=== PATIENT | female | born 1985 ===

== ENCOUNTER 2017-08-15 10:12 | Emergency (ER) | payer OTHER ==
[2017-08-15 10:12] VITALS: BMI 28.3
[2017-08-15] MEDS ORDERED: Albuterol-Ipratrop 3 mg / 0.5 (3 ml) UD ONE ×2 (10:25→12:08)
[2017-08-15] MEDS ORDERED: Sodium Chloride 0.9% 1,000 ML IV ONE (10:49)
--- NOTE | 2017-08-15 10:51 | C.PDOC ---
History Of Present Illness 31 yr old female brought in via EMS, presents to the ER for evaluation of left sided chest wall pain gradually developed for past 2 days. Pt reports, today woke up with left arm numbness and tingling sensation. Patient admits the chest wall pain is reproducible and worse with left arm movement. Pt also reports, " was coughing for few months, seems chronic cough". Otherwise, pt denies recent fever, chills, headache, dizziness, visual changes, focal deficits, neck pain, chest pain, palpitations, SOB, dyspnea, wheezing, nausea, vomiting, abdominal pain, back pain, denies known trauma or injury to Left arm. Ambulatory in ED with stable gait, not in any apparent distress. Time Seen by Provider: 08/15/17 10:18 Chief Complaint (Nursing): Cough, Cold, Congestion History Per: Patient History/Exam Limitations: no limitations Onset/Duration Of Symptoms: Sudden Onset (since morning) Past Medical History Reviewed: Historical Data, Nursing Documentation, Vital Signs Vital Signs: Last Vital Signs Temp 98.2 F 08/15/17 12:58 Pulse 76 08/15/17 12:58 Resp 18 08/15/17 12:58 BP 142/82 08/15/17 12:58 Pulse Ox 98 08/15/17 12:58 - Medical History PMH: Asthma Family History: States: No Known Family Hx - Social History Hx Tobacco Use: Yes Hx Alcohol Use: No Hx Substance Use: No - Immunization History Hx Tetanus Toxoid Vaccination: No Hx Influenza Vaccination: No Hx Pneumococcal Vaccination: No Review Of Systems Except As Marked, All Systems Reviewed And Found Negative. Constitutional: Negative for: Fever, Chills Cardiovascular: Positive for: Other ((+) left sided chest wall pain). Negative for: Chest Pain, Palpitations Respiratory: Negative for: Shortness of Breath, Wheezing Gastrointestinal: Negative for: Nausea, Vomiting, Abdominal Pain Musculoskeletal: Positive for: Other ((+) left armnumbness and tingling sensation). Negative for: Neck Pain, Back Pain Physical Exam - Physical Exam Appears: Well, Non-toxic, No Acute Distress Skin: Warm, Dry, No Rash Head: Normacephalic Eye(s): bilateral: PERRL Ear(s): Bilateral: Normal Nose: No Flaring, No Discharge Oral Mucosa: Moist, No Drooling Lips: Normal Appearing Throat: No Erythema, No Exudate, No Drooling Neck: Trachea Midline, Supple Chest: Symmetrical, Tenderness (tenderness over the anterior aspect left chest wall overlying 2-4 intercostal spaces with moderate muscle spasm. No palpable deformity, no skin changes.), No Ecchymosis, No Subcutaneous Emphysema Cardiovascular: Rhythm Regular, No Murmur, No JVD, Other ((-) carotid bruits) Respiratory: No Decreased Breath Sounds, No Accessory Muscle Use, No Rales, No Rhonchi, No Stridor, Wheezing (scattered Right base) Gastrointestinal/Abdominal: Soft, No Tenderness, No Distention, No Guarding Back: No CVA Tenderness Extremity: Normal ROM, No Tenderness, Capillary Refill (less than 2sec to B/L UEs), No Deformity, No Swelling Neurological/Psych: Oriented x3, Normal Speech, Normal Cognition, Normal Motor, Normal Sensation, Normal Reflexes ED Course And Treatment - Laboratory Results Result Diagrams: 08/15/17 11:54 08/15/17 11:54 Lab Interpretation: No Acute Changes ECG: Interpreted By Me, Viewed By Me (and ED attending) ECG Rhythm: Sinus Rhythm Interpretation Of ECG: SR@65/min, NAD, no acute t wave or ST-T changes Rate From EC (BPM) O2 Sat by Pulse Oximetry: 97 (RA) Pulse Ox Interpretation: Normal - Radiology CXR: Interpreted by Me, Viewed By Me CXR Interpretation: Yes: No Acute Disease Progress Note: Pt was OBS in ED for 2 hours and reports moderate improvement in sx. On re-eval, pt is Afebrile, hemdoynamicalys table. Non-toxic. Ambulatory in Ed with stable gait. PuslEOx 97% RA. ENT: no acute findings. neck: SUpple , (-) JVD, (-) carotid bruits B/L. Lungs: CTA B/L, BS equal B/L. CVS: (+)S1S2 , reg, (-) murmur. Abd: benign, (-) guarding, (-) rebound. Back: (-) CVA tenderness. Neuorlogicaly intact. Blood work review and appears without acute abnormalities. Troponin- negative. CXR, EKG- normal study. Pt has clinical findings c/w left arm paresthesia, left sided chest wall pain, bronchitis r/o COPD. Pt advised. ref. to f/u with PMD, Neurologist in 2-3 days for re-eavl. return to ED if any worsening or new changes. Medical Decision Making Medical Decision Making: PLAN: * CXR * EKG * Troponin * CBC * BMP * Influenza * HCG * Urinalysis * Solumedrol IVP * Toradol IVP * Valium IVP * Sodium Chloride IV Disposition Counseled Patient/Family Regarding: Studies Performed, Diagnosis, Need For Followup, Rx Given - Disposition Referrals: [facility] [Outside] Jose Lott MD [Staff Provider] - Disposition: HOME/ ROUTINE Disposition Time: 12:44 Condition: STABLE Additional Instructions: LIght duty to left arm Take medication as prescribed Follow up with PMD in 2-3 days for re-evaluation. Return to ED if any worsening or new changes. Prescriptions: Albuterol HFA [Ventolin HFA 90 mcg/actuation (8 g)] 1 puff IH Q6 #1 inhaler Methocarbamol [Robaxin] 500 mg PO TID #14 tab Prednisone [Deltasone] 20 mg PO DAILY #3 tablet Instructions: Acute Bronchitis (ED), Paresthesia (ED), Chest Wall Pain (ED) Forms: [employer] (Belarusian) - Clinical Impression Clinical Impression: Bronchitis, Chest wall pain, Bronchitis - PA / CARDIAC MONITOR / Resident Statement MD/DO has reviewed & agrees with the documentation as recorded. - Scribe Statement The provider has reviewed the documentation as recorded by the Scribe Roseann Brandon All medical record entries made by the Scribe were at my direction and personally dictated by me. I have reviewed the chart and agree that the record accurately reflects my personal performance of the history, physical exam, medical decision making, and the department course for this patient. I have also personally directed, reviewed, and agree with the discharge instructions and disposition.
[2017-08-15] MEDS ORDERED: diaZEpam 10 mg/2 ml Inj IVP STA (11:04)
[2017-08-15] MEDS ORDERED: MethylPREDNISolone 40 mg Vial IVP STA (11:22)
[2017-08-15] MEDS ORDERED: Sodium Chloride 0.9% 1,000 ML ONE (11:38)
[2017-08-15] MEDS ORDERED: Albuterol-Ipratrop 3 mg / 0.5 (3 ml) UD IH STA (11:47)
[2017-08-15 12:01] LABS: BASO # 0.1 K/uL (0.0-0.2); BASO % 0.7 % (0.0-2.0); EOS # 0.2 K/uL (0.0-0.7); EOS % 2.3 % (0.0-4.0); HEMOGLOBIN 16.3 g/dL (11.0-16.0); MEAN CELL VOLUME 94.9 fL (81.0-99.0); MEAN CORPUSCULAR HEMOGLOBIN 33.6 pg (27.0-31.0); MEAN CORPUSCULAR HGB CONC 35.4 g/dL (33.0-37.0); MEAN PLATELET VOLUME 9.6 fL (7.2-11.7); MONO # 0.6 K/uL (0.0-0.8); MONO % 7.1 % (0.0-10.0); NEUT % 67.9 % (50.0-75.0); NRBC % 0.1 % (0.0-2.0); RBC 4.87 Mil/uL (3.80-5.20); RED CELL DISTRIBUTION WIDTH 13.2 % (11.5-14.5); WHITE BLOOD COUNT 8.9 K/uL (4.8-10.8)
[2017-08-15] MEDS ORDERED: diaZEpam 10 mg/2 ml Inj ONE (12:02)
[2017-08-15 12:03] LABS: HCG,QUALITATIVE URINE NEGATIVE (NEGATIVE)
[2017-08-15 12:04] LABS: SQUAMOUS EPITHIAL 12 /hpf (0-5); URINE BACTERIA RARE (<OCC); URINE BILIRUBIN NEGATIVE (NEGATIVE); URINE BLOOD NEGATIVE (NEGATIVE); URINE CLARITY Hazy (Clear); URINE COLOR Yellow (YELLOW); URINE GLUCOSE (UA) NORMAL (Normal); URINE LEUKOCYTE ESTERASE NEG Leu/uL (Negative); URINE NITRATE NEGATIVE (NEGATIVE); URINE PROTEIN NEGATIVE (NEGATIVE); URINE UROBILINOGEN NORMAL mg/dL (0.2-1.0)
[2017-08-15 12:14] LABS: BLOOD UREA NITROGEN 11 mg/dL (7-17); CALCIUM 9.5 mg/dl (8.6-10.4); GFR AFRICAN-AMERICAN > 60; GFR NON-AFRICAN AMERICAN > 60
[2017-08-15 12:59] VITALS: BP 142/82; PULSE 76; RESP 18; TEMP 98.2
--- NOTE | 2017-08-15 16:14 | RAD ---
HISTORY: SOB COMPARISON: No prior. TECHNIQUE: Chest PA and lateral FINDINGS: LUNGS: No active pulmonary disease. PLEURA: No significant pleural effusion identified. No pneumothorax apparent. CARDIOVASCULAR: Normal. OSSEOUS STRUCTURES: No significant abnormalities. VISUALIZED UPPER ABDOMEN: Normal. OTHER FINDINGS: None. IMPRESSION: No active disease.
[2017-08-15 17:57] VITALS: O2SAT 97
--- NOTE | 2017-08-15 20:53 | CARD ---
APPROVED REPORT EKG Measurement Heart [id number] <Conclusion> Normal sinus rhythm with sinus arrhythmia Normal ECG
== END 2017-08-15 13:08 | disposition home or self-care (01) ==
LOC: C.ER 10:12
DX: J40 Bronchitis, not specified as acute or chronic (principal); R07.89 Other chest pain; Z72.0 Tobacco use
CPT/HCPCS: 71046; 80048; 81001; 84484; 84703; 85025; 87804; 93005; 94640; 96361; 96374; 96375; 99284; J1885; J2920; J3360; J7040